=== PATIENT | female | born 1965 | race Caucasian/White ===

== ENCOUNTER 2018-01-03 09:25 | Day surgery (SDC) | payer OTHER ==
[~2018-01-03 09:25] MED LIST: AMBIEN10 MG PO; CARDIZEM CD240 MG PO; CLONAZEPAM1 MG PO; LOSARTAN POTASS50 MG PO
[2018-01-03] MEDS ORDERED: TRAMADOL HCL50 MG PO (16:07)
== END 2018-01-03 18:40 | disposition home or self-care (01) ==
LOC: CIR.AMB 09:25
DX: D35.1 Benign neoplasm of parathyroid gland (principal)